=== PATIENT | female | born 1995 | race Caucasian/White ===

== ENCOUNTER → 2018-04-10 | Outpatient (CLI) | payer OTHER ==
--- NOTE | 2018-04-11 11:51 | MM ---
Reason for exam: screening (asymptomatic). Baseline mammogram. History: Family history of breast cancer in mother at age 26. Physical Findings: Nurse did not find any significant physical abnormalities on exam. MG Screening Mammo w CAD Bilateral CC and MLO view(s) were taken. There are scattered fibroglandular densities. Asymmetric density medial left breast likely summation. Further evaluation recommended. Otherwise, no abnormality seen. These results were verbally communicated with the patient and result sheet given to the patient on 04/10/18. ASSESSMENT: Incomplete: need additional imaging evaluation, BI-RAD 0 RECOMMENDATION: Special view mammogram of the left breast. If lesion persists on supplemental views, image directed ultrasound is recommended. [facility] will attempt to contact patient to return for supplemental views and ultrasound if indicated.
--- NOTE | 2018-04-11 11:56 | MM ---
Reason for exam: additional evaluation requested from abnormal screening. History: Family history of breast cancer in mother at age 26. Physical Findings: Breast exam preformed at baseline screening. MG Diagnostic Mammo LT w CAD Spot compression CC, spot compression MLO, and LM view(s) were taken of the left breast. There are scattered fibroglandular densities. The questioned medial asymmetric density does not persist. These results were verbally communicated with the patient and result sheet given to the patient on 04/10/18. ASSESSMENT: Negative, BI-RAD 1 RECOMMENDATION: Return to routine screening mammogram schedule for the left breast. Given patient's family history, she may qualify for alternating mammogram and MRI screening.
== END | disposition home or self-care (01) ==
LOC: RADMAMWWP 13:39
PROVIDERS: ATTEND Family Medicine
DX: Z12.31 Encounter for screening mammogram for malignant neoplasm of breast (principal); R92.8 Other abnormal and inconclusive findings on diagnostic imaging of breast; Z80.3 Family history of malignant neoplasm of breast
CPT/HCPCS: 77065; 77067

== ENCOUNTER → 2019-01-23 | Outpatient (CLI) | payer OTHER ==
--- NOTE | 2019-01-23 17:40 | US ---
EXAMINATION TYPE: US transvaginal DATE OF EXAM: 01/23/2019 COMPARISON: NONE CLINICAL HISTORY: 23-year-old female R19.09 INTRA ABD AND PELVIC SWELLING. Patient states that during pelvic exam, doctor felt mass on right side. Patient currently has a NuvaRing. Family hx of ovaria n cancer TECHNIQUE: Transvaginal (TV). Date of LMP: 01/11/2019, FINDINGS: EXAM MEASUREMENTS: Uterus: 7.6 x 4.7 x 3.8 cm Endometrial Stripe: 0.6 cm Right Ovary: 2.9 x 1.6 x 1.5 cm Left Ovary: 2.6 x 1.3 x 1.1 cm 1. Uterus: Anteverted wnl 2. Endometrium: wnl 3. Right Ovary: follicles seen 4. Left Ovary: follicles seen 5. Bilateral Adnexa: wnl 6. Posterior cul-de-sac: small amount of free fluid 7. Cervix- nonvascular tubular structure seen adjacent to cervix, possible NuvaRing. IMPRESSION: 1. Normal-sized ovaries with normal follicular change. 2. What appears to be the NuvaRing is identified along the posterior fornix. 3. No adnexal mass.
== END | disposition home or self-care (01) ==
LOC: RADUSWWP 16:16
PROVIDERS: ATTEND Family Medicine
DX: R19.09 Other intra-abdominal and pelvic swelling, mass and lump (principal)
CPT/HCPCS: 76830

== ENCOUNTER → 2019-09-04 | Outpatient (CLI) | payer OTHER ==
--- NOTE | 2019-09-04 11:04 | US ---
EXAMINATION TYPE: US venous doppler duplex LE RT DATE OF EXAM: 09/04/2019 10:55 AM COMPARISON: NONE CLINICAL HISTORY: R Leg, M79.604 pain. pain in right leg that has gotten worse, no h/o dvt SIDE PERFORMED: Right TECHNIQUE: The lower extremity deep venous system is examined utilizing real time linear array sonog usha with graded compression, doppler sonography and color-flow sonography. VESSELS IMAGED: External Iliac Vein (EIV) Common Femoral Vein Deep Femoral Vein Greater Saphenous Vein * Femoral Vein Popliteal Vein Small Saphenous Vein * Proximal Calf Veins (* superficial vessels) Right Leg: Appears negative for DVT Grayscale, color doppler, spectral doppler imaging performed of the deep veins of the right lower ext remity. There is normal flow, compressibility, vascular waveforms. IMPRESSION: No ultrasound evidence for acute DVT in the right lower extremity.
== END | disposition home or self-care (01) ==
LOC: RADUSWWP 10:34
PROVIDERS: ATTEND Family Medicine
DX: M79.604 Pain in right leg (principal)

== ENCOUNTER 2021-04-13 18:06 | Inpatient (IN) | payer MEDICAID, OTHER ==
--- NOTE | 2021-04-13 18:45 | ED ---
General Adult HPI - General Chief complaint: Psychiatric Symptoms Stated complaint: mental health Time Seen by Provider: 04/13/21 18:29 Source: patient, RN notes reviewed Mode of arrival: ambulatory Limitations: no limitations - History of Present Illness Initial comments: Patient is a pleasant 25-year-old female presenting to the emergency department with mental health concerns. Patient has been depressed over the past month and a half. Patient does have some thoughts of self-harm without plan. Patient has been hearing voices the past few days. Patient questions if someone is trying to talk to her. Patient also sees some strange things at the corner of her eyes. Patient does feel little bit paranoid. No homicidal thoughts. No alcohol or street drug use. - Related Data Home Medications Medication Instructions Recorded Confirmed Divalproex Sodium [Depakote] 500 mg PO BID 04/13/21 04/13/21 hydrOXYzine pamoate [Vistaril] 25 mg PO TID PRN 04/13/21 04/13/21 Allergies Allergy/AdvReac Type Severity Reaction Status Date / Time cephalexin [From Keflex] Allergy Anaphylaxis Verified 04/13/21 19:44 Penicillins Allergy Anaphylaxis Verified 04/13/21 19:44 clindamycin AdvReac Vomiting Verified 04/13/21 19:44 Sulfa (Sulfonamide AdvReac Vomiting Verified 04/13/21 19:44 Antibiotics) Review of Systems ROS Statement: Those systems with pertinent positive or pertinent negative responses have been documented in the HPI. ROS Other: All systems not noted in ROS Statement are negative. Constitutional: Denies: fever Eyes: Denies: eye pain ENT: Denies: ear pain Respiratory: Denies: cough Cardiovascular: Denies: chest pain Endocrine: Denies: fatigue Gastrointestinal: Denies: abdominal pain Genitourinary: Denies: urgency Musculoskeletal: Denies: back pain Skin: Denies: rash Neurological: Denies: weakness Psychiatric: Reports: depression, auditory hallucinations, visual hallucinations, suicidal thoughts Past Medical History Past Medical History: Seizure Disorder History of Any Multi-Drug Resistant Organisms: None Reported Past Surgical History: Adenoidectomy, Section, Cholecystectomy, Tonsillectomy Past Psychological History: Bipolar, Depression Smoking Status: Current every day smoker Past Alcohol Use History: None Reported Past Drug Use History: Marijuana General Exam Limitations: no limitations General appearance: alert, in no apparent distress Head exam: Present: normocephalic Eye exam: Present: normal appearance Respiratory exam: Present: normal lung sounds bilaterally Cardiovascular Exam: Present: regular rate, normal rhythm GI/Abdominal exam: Present: soft. Absent: tenderness Extremities exam: Present: normal inspection Neurological exam: Present: alert Psychiatric exam: Present: normal affect, normal mood Skin exam: Present: normal color Course Vital Signs 04/13/21 18:08 Temperature 98.6 F Pulse Rate 80 Respiratory 16 Rate Blood Pressure 152/89 O2 Sat by Pulse 98 Oximetry Medical Decision Making - Medical Decision Making Patient seen by mental health services, who will admit. Disposition Clinical Impression: Acute psychosis, Depression Disposition: TRANSFER TO PSYCH HOSP/UNIT Is patient prescribed a controlled substance at d/c from ED?: No Referrals: Lucio Rodriguez MD [Primary Care Provider] - 1-2 days Decision Time: 19:52
[2021-04-13] MEDS ORDERED: MAG HYDROX/AL HYDROX/SIMETH 30 ML CUP PO PRN (20:57)
[2021-04-13] MEDS ORDERED: MAGNESIUM HYDROXIDE 2,400 MG/10 ML CUP PO PRN (20:57)
[2021-04-13] MEDS ORDERED: ACETAMINOPHEN TAB 325 MG TAB PO PRN (20:57)
[2021-04-13] MEDS ORDERED: LORazepam 1 MG TAB PO PRN (20:57)
[2021-04-13] MEDS ORDERED: LORazepam 2 MG/ML INJ IM PRN (21:07)
[2021-04-13] MEDS ORDERED: HALOPERIDOL LACTATE 5 MG/ML 1 ML VIAL IM PRN (21:07)
[2021-04-14 07:34] LABS: Basophils # (A) 0.1 k/uL (0-0.2); Basophils % (A) 1 %; Eosinophils # (A) 0.4 k/uL (0-0.7); Eosinophils % (A) 4 %; HCT 41.9 % (34.0-46.0); HGB 13.3 gm/dL (11.4-16.0); Lymphocytes # (A) 3.4 k/uL (1.0-4.8); Lymphocytes % (A) 30 %; MCH 26.7 pg (25.0-35.0); MCHC 31.8 g/dL (31.0-37.0); MCV 84.1 fL (80.0-100.0); Monocytes # (A) 0.4 k/uL (0-1.0); Monocytes % (A) 4 %; Neutrophils # (A) 6.7 k/uL (1.3-7.7); Neutrophils % (A) 61 %; Platelet Count 248 k/uL (150-450); RBC 4.98 m/uL (3.80-5.40); RDW 14.2 % (11.5-15.5); WBC 11.1 k/uL (3.8-10.6)
[2021-04-14 07:41] LABS: ALT 10 U/L (4-34); AST 17 U/L (14-36); African American GFR (CKD) >90 (>60 ml/min/1.73 sqM); Albumin 3.6 g/dL (3.5-5.0); Alkaline Phosphatase 86 U/L (38-126); Anion Gap 4 mmol/L; Blood Urea Nitrogen 9 mg/dL (7-17); Calcium 9.3 mg/dL (8.4-10.2); Carbon Dioxide 27 mmol/L (22-30); Chloride 108 mmol/L (98-107); Glucose 107 mg/dL (74-99); Non-African American GFR(CKD) >90 (>60 ml/min/1.73 sqM); Potassium 4.7 mmol/L (3.5-5.1); Sodium 139 mmol/L (137-145); Total Bilirubin 0.3 mg/dL (0.2-1.3)
[2021-04-14] MEDS: NICOTINE 14MG/24HR PATCH TRANSDERM SCH (09:15)
--- NOTE | 2021-04-14 11:27 | P.HP ---
Psychiatric H&P - . H&P Date: 04/14/21 History & Physical: Allergies Allergy/AdvReac Type Severity Reaction Status Date / Time cephalexin From Keflex Allergy Anaphylaxis Verified 04/13/21 19:44 Penicillins Allergy Anaphylaxis Verified 04/13/21 19:44 clindamycin AdvReac Vomiting Verified 04/13/21 19:44 Sulfa (Sulfonamide AdvReac Vomiting Verified 04/13/21 19:44 Antibiotics) Vital Signs Temp 98.6 F 04/13/21 23:05 Pulse 90 04/13/21 23:05 Resp 18 04/13/21 23:05 BP 126/74 04/13/21 23:05 Pulse Ox 99 04/13/21 23:05 Intake & Output 04/13/21 04/14/21 04/14/21 18:59 06:59 18:59 Weight 99.79 kg 100.754 kg Laboratory Last Values WBC 11.1 k/uL (3.8-10.6) H 04/14/21 07:05 RBC 4.98 m/uL (3.80-5.40) 04/14/21 07:05 Hgb 13.3 gm/dL (11.4-16.0) 04/14/21 07:05 Hct 41.9 % (34.0-46.0) 04/14/21 07:05 MCV 84.1 fL (80.0-100.0) 04/14/21 07:05 MCH 26.7 pg (25.0-35.0) 04/14/21 07:05 MCHC 31.8 g/dL (31.0-37.0) 04/14/21 07:05 RDW 14.2 % (11.5-15.5) 04/14/21 07:05 Plt Count 248 k/uL (150-450) 04/14/21 07:05 MPV 9.0 04/14/21 07:05 Neutrophils % 61 % 04/14/21 07:05 Lymphocytes % 30 % 04/14/21 07:05 Monocytes % 4 % 04/14/21 07:05 Eosinophils % 4 % 04/14/21 07:05 Basophils % 1 % 04/14/21 07:05 Neutrophils # 6.7 k/uL (1.3-7.7) 04/14/21 07:05 Lymphocytes # 3.4 k/uL (1.0-4.8) 04/14/21 07:05 Monocytes # 0.4 k/uL (0-1.0) 04/14/21 07:05 Eosinophils # 0.4 k/uL (0-0.7) 04/14/21 07:05 Basophils # 0.1 k/uL (0-0.2) 04/14/21 07:05 Sodium 139 mmol/L (137-145) 04/14/21 07:05 Potassium 4.7 mmol/L (3.5-5.1) 04/14/21 07:05 Chloride 108 mmol/L (98-107) H 04/14/21 07:05 Carbon Dioxide 27 mmol/L (22-30) 04/14/21 07:05 Anion Gap 4 mmol/L 04/14/21 07:05 BUN 9 mg/dL (7-17) 04/14/21 07:05 Creatinine 0.65 mg/dL (0.52-1.04) 04/14/21 07:05 Est GFR (CKD-EPI)AfAm >90 (>60 ml/min/1.73 sqM) 04/14/21 07:05 Est GFR (CKD-EPI)NonAf >90 (>60 ml/min/1.73 sqM) 04/14/21 07:05 Glucose 107 mg/dL (74-99) H 04/14/21 07:05 Calcium 9.3 mg/dL (8.4-10.2) 04/14/21 07:05 Total Bilirubin 0.3 mg/dL (0.2-1.3) 04/14/21 07:05 AST 17 U/L (14-36) 04/14/21 07:05 ALT 10 U/L (4-34) 04/14/21 07:05 Alkaline Phosphatase 86 U/L (38-126) 04/14/21 07:05 Total Protein 6.0 g/dL (6.3-8.2) L 04/14/21 07:05 Albumin 3.6 g/dL (3.5-5.0) 04/14/21 07:05 TSH 2.140 mIU/L (0.465-4.680) 04/14/21 07:05 Valproic Acid 35.1 ug/mL 04/14/21 07:05 04/14/21 11:18 IDENTIFYING DATA: Patient is a 25-year-old female with a history of bipolar disorder who currently lives with her has 3 kids and lives in a trailer. She is unemployed. HPI: Patient presented to the hospital yesterday for a psychiatric evaluation. She is reporting an increase in her depression for the past 1-1/2 months according to ER report. Patient also reported in the ER that she was having increasing thoughts of suicide however had no plan or intent. She also was reporting auditory hallucinations and paranoia at that time. She was admitted to the mental health unit for psychiatric evaluation. She was seen this morning agreeable to see the policy writer sales. She claims that she has been having financial st ressors and almost lost her trailer recently. She claims that her grandma and cousin recently . She states that for the past 3-4 days she's been expressing auditory hallucinations which are completely brand-new to her. She states that she was also started on Depakote about one week ago by her nurse practitioner at [facility]. She states that the voices were trying to get her attention and calling her name throughout the day. She states that her mood has been fairly depressed however does report mood swings and elevations in her mood including hypomanic and manic episodes. She states that she has been diagnosed with bipolar disorder since the age of 13. She claims that she has been going to see a counselor at [facility] which has been helping. She states that she also does have anxiety. She claims that since she stopped taking the Depakote yesterday she has not heard the voices. She states that her sleep is chronically poor. She claims that her appetite is fair. She is not endorsing any paranoia today or delusions. Patient denies any current suicidal or homicidal ideations intent or plan. At this time patient denies any auditory or visual hallucinations. Patient denies any flight of ideas racing thoughts and increased in goal directed behavior. Patient admits to using marijuana daily and cigarettes daily. PAST PSYCHIATRIC HISTORY: Patient states that she has a history of bipolar disorder and anxiety. Patient is on Depakote and Vistaril. She states that she was once psychiatrically hospitalized at the age of 13. She claims that she follows up with a nurse practitioner at [facility]. She claims that she has had 3 suicide attempts in the past including jumping off a balcony and overdosing when she was 10-12 years old. PMH: She claims that she has costochondritis and chronic pain ALLERGIES: as per EMR CHEMICAL DEPENDENCY HISTORY: as per HPI FAMILY PSYCHIATRIC/SUBSTANCE USE HISTORY: She states that her father or mother and grandmother all have depression. She states that her cousin recently committed suicide. SOCIAL HISTORY: Patient was born and raised in [place] and also [place]. She states that she completed high school. 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 She states that she is and lives with her in a trailer has 3 kids. She denies any legal history.. MENTAL STATUS EXAM: General Appearance: Patient appears to be overweight, short hair, stated age is alert, directable, and attempts to cooperate. Patient appears to have fair hygiene and grooming. Facial piercings. Behavior: Patient is seated without any agitated behavior. Speech: Patient's speech is fluent and nonpressured. Mood/Affect: Patient reports their mood is depressed and anxious, affect is congruent and constricted. Suicidality/Homicidality: Patient denies having any homicidal ideation intent or plan. Denies any suicidal ideations intent or plan Perceptions: Patient denies any visual hallucinations and denies any auditory hallucinations Though content/process: There is no evidence of any delusional thought content and thought process is linear and goal-directed. Memory and concentration: AOX3, grossly intact for the purposes of this session. Can spell "WORLD" backwards Judgment and insight: Fair STRENGTHS/WEAKNESSES: strength is that patient is resilient. Weakness is that patient chronic mental illness and is impulsive. INTELLECT: average IMPRESSIONS: Psychotropic agent causing adverse effect in therapeutic use Bipolar disorder unspecified Anxiety disorder unspecified Cannabis use disorder Nicotine dependence PLAN: -Patient is admitted under voluntary status to MHU for stabilization of psychiatric symptoms and safety. Patient has signed adult voluntary form and medication consent and is placed in patient's chart. -Medications : Will start patient on Lamictal 25 mg twice a day for mood stabilization/depression. Vistaril when necessary every 6 hours for anxiety + 25mg qhs scheduled for insomnia/anxiety. Discontinue Depakote as this was most likely the culprit for patient's auditory hallucinations and suicidal ideations. -Ativan and Haldol PRN for agitation/aggression -Patient was counselled on substance abuse and desired to cut back on use -Patient was informed of the risks, benefits and side effects of the medication and patient verbally consented to taking the medications. Patient signed med consent form and was placed in chart. -Internal Medicine consult to perform medical evaluation and physical. -NRT - nicotine patch -SW on board for discharge planning. Encourage patient to participate in groups to work on coping skills. 04/14/21 11:26
[2021-04-14] MEDS ORDERED: hydrOXYzine pamoate 25 MG CAP PO PRN (11:28)
[2021-04-14] MEDS: lamoTRIgine 25 MG TAB PO SCH ×2 (12:23→20:52)
[2021-04-14 15:40] LABS: Hemoglobin A1C 5.5 % (4.0-6.0)
[2021-04-14 16:31] LABS: Chol/HDL Ratio 4.74; Cholesterol 161 mg/dL (0-200); LDL Cholesterol,Calculated 94.6 mg/dL (0.0-131.0)
[2021-04-14] MEDS: hydrOXYzine pamoate 25 MG CAP PO SCH (20:52)
--- NOTE | 2021-04-14 22:37 | P.CONS ---
History of Present Illness - History of Present Illness This is a pleasant 25 years old female with past medical history of asthma, s eizure disorder, status post tubal ligation, right volar and depression. She was admitted to the mental health unit with signs and symptoms of depression and anxiety. Consult was requested for routine medical management. Patient was seen in walking in the hallway with no difficulty. She denies Any specific symptoms. Chest pain or dyspnea. No change in urine or bowel habits. No fever vitals are stable She has mild leukocytosis at 11 K, mostly secondary to stress. No fever or signs of infection no need for antibiotic Rest of CBC, BMP and liver enzymes are unremarkable. TSH is normal at 2.1. Triglycerides is slightly elevated at 162, LDL is 94. HDL is appropriately low at 34. She smokes half pack per day and she uses marijuana and times Review of Systems CONSTITUTIONAL: No fever, no malaise, no fatigue. HEENT: No recent visual problems or hearing problems. Denied any sore throat. CARDIOVASCULAR: No orthopnea, PND, no palpitations, no syncope. PULMONARY: No shortness of breath, no cough, no hemoptysis. GASTROINTESTINAL: No diarrhea, no nausea, no vomiting, no abdominal pain. Normoactive bowel sounds. NEUROLOGICAL: No headaches, no weakness, no numbness. HEMATOLOGICAL: Denies any bleeding or petechiae. GENITOURINARY: Denies any burning micturition, frequency, or urgency. MUSCULOSKELETAL/RHEUMATOLOGICAL: Denies any joint pain, swelling, or any muscle pain. ENDOCRINE: Denies any polyuria or polydipsia. Past Medical History Past Medical History: Asthma, Seizure Disorder Additional Past Medical History / Comment(s): pt reports that she has psuedoseizures. pt also states that she has a history of asthma and costal chondritis. History of Any Multi-Drug Resistant Organisms: None Reported Past Surgical History: Adenoidectomy, Section, Cholecystectomy, Tonsillectomy Past Anesthesia/Blood Transfusion Reactions: No Reported Reaction Past Psychological History: Bipolar, Depression Smoking Status: Current every day smoker Past Alcohol Use History: None Reported Past Drug Use History: Marijuana Medications and Allergies Home Medications Medication Instructions Recorded Confirmed Type Divalproex Sodium [Depakote] 500 mg PO BID 04/13/21 04/13/21 History hydrOXYzine pamoate [Vistaril] 25 mg PO TID PRN 04/13/21 04/13/21 History Allergies Allergy/AdvReac Type Severity Reaction Status Date / Time cephalexin [From Keflex] Allergy Anaphylaxis Verified 04/13/21 19:44 Penicillins Allergy Anaphylaxis Verified 04/13/21 19:44 clindamycin AdvReac Vomiting Verified 04/13/21 19:44 Sulfa (Sulfonamide AdvReac Vomiting Verified 04/13/21 19:44 Antibiotics) Physical Exam Vitals: Vital Signs Temp Pulse Resp BP Pulse Ox 04/13/21 23:05 98.6 F 90 18 126/74 99 Intake and Output 04/14/21 04/14/21 04/14/21 06:59 14:59 22:59 Other: Weight 100.754 kg -GENERAL: The patient is alert and oriented x3, not in any acute distress. Obese HEENT: Pupils are round and equally reacting to light. EOMI. No scleral icterus. No conjunctival pallor. Normocephalic, atraumatic. No pharyngeal erythema. No thyromegaly. CARDIOVASCULAR: S1 and S2 present. No murmurs, rubs, or gallops. PULMONARY: Chest is clear to auscultation, no wheezing or crackles. ABDOMEN: Soft, nontender, nondistended, normoactive bowel sounds. No palpable organomegaly. MUSCULOSKELETAL: No joint swelling or deformity. EXTREMITIES: No cyanosis, clubbing, or pedal edema. NEUROLOGICAL: Gross neurological examination did not reveal any focal deficits. SKIN: No rashes. No petechiae Results CBC & Chem 7: 04/14/21 07:05 04/14/21 07:05 Labs: Abnormal Lab Results - Last 24 Hours (Table) 04/14/21 04/14/21 Range/Units 07:05 07:05 WBC 11.1 H (3.8-10.6) k/uL Chloride 108 H (98-107) mmol/L Glucose 107 H (74-99) mg/dL Total Protein 6.0 L (6.3-8.2) g/dL Triglycerides 162.0 H (0.0-149.0) mg/dL HDL Cholesterol 34.0 L (40.0-60.0) mg/dL Assessment and Plan Assessment: -Depression and other sac illnesses, management as per primary team -Obesity: Recommend exercise and diet -Nicotine dependence: Patient was counseled to quit, she agrees to quit but declinesNicotine patch -Substance abuse with marijuana, patient was counseled to quit -History of asthma, not an active issue -History of seizure, not an active issue Patient recommended to follow-up with PCP in one week after discharge and she was instructed with the same Thank you for consulting us, T the patient on as needed basis. Please feel free to contact us for any future questions
[2021-04-15 06:38] VITALS: PULSE 81; RESP 16
[2021-04-15] MEDS: NICOTINE 14MG/24HR PATCH TRANSDERM SCH (08:29)
[2021-04-15] MEDS: lamoTRIgine 25 MG TAB PO SCH ×2 (08:30→20:42)
--- NOTE | 2021-04-15 10:02 | P.PN ---
Progress Note - Text Progress Note Date: 04/15/21 Interval History: Patient was seen today laying in her bed and was directable and agreeable to s peak with proposal lead writer in the office. Patient appears to be somewhat tired this morning however states that she feels "good". She states that her anxiety has improved since being on the unit and did not have anxiety or a panic attack this morning when she woke up. She states that she was able to sleep fairly throughout the night with her Vistaril. She claims that she is checking her skin and not feeling any changes or seeing any rashes from the Lamictal. She claims that she spoke with her and her mother over the phone. She states that she has been trying to go to groups and participate as best as she can. She states that she has been overall improving on the medications and not hearing any more voices or feeling suicidal. She states that she was able to sleep fairly throughout the night. At this time patient denies any suicidal or homical ideations, intent or plan. Patient denies any auditory, visual hallucinations and denies any paranoia or delusions. Patient denies any side effects from the medications and has been compliant with meds. Mental Status Exam: General Appearance: Patient appears to be overweight, short hair, stated age is alert, directable, and attempts to cooperate. Patient appears to have fair hygiene and grooming. Facial piercings. Behavior: Patient is seated without any agitated behavior. Speech: Patient's speech is fluent and nonpressured. Mood/Affect: Patient reports their mood is improving, affect is congruent and constricted. Suicidality/Homicidality: Patient denies having any homicidal ideation intent or plan. Denies any suicidal ideations intent or plan Perceptions: Patient denies any visual hallucinations and denies any auditory hallucinations Though content/process: There is no evidence of any delusional thought content and thought process is linear and goal-directed. Memory and concentration: AOX3, grossly intact for the purposes of this session. Judgment and insight: Fair Assessment Psychotropic agent causing adverse effect in therapeutic use Bipolar disorder unspecified Anxiety disorder unspecified Cannabis use disorder Nicotine dependence Plan: -Patient continues to meet criteria for inpatient psychiatric admission for symptom stabilization and safety. Patient has signed adult voluntary form and medication consent and was placed in patient's chart. -Medications: Continue with Lamictal 25 mg twice a day for mood stabilization/depression. Continue Vistaril when necessary for anxiety +25 mg daily at bedtime scheduled for insomnia/anxiety. -When necessary Ativan and Haldol for agitation/aggression. -NRT - nicotine patch -SW on board for discharge planning. Encouraged the patient to participate in milieu. if patient does well overnight and improves by tomorrow then she will be set for discharge back home tomorrow.
[2021-04-15] MEDS: hydrOXYzine pamoate 25 MG CAP PO SCH (20:42)
[2021-04-16 06:59] VITALS: BP 136/71; TEMP 97.2
[2021-04-16] MEDS: NICOTINE 14MG/24HR PATCH TRANSDERM SCH (07:30)
[2021-04-16] MEDS: lamoTRIgine 25 MG TAB PO SCH (07:31)
--- NOTE | 2021-04-16 11:21 | P.DS ---
Providers Date of admission: 04/13/21 20:25 Expected date of discharge: 04/16/21 Attending physician: Efrain Gavin MD Consults: 04/13/21 20:57 Consult Physician Routine Consulting Provider: Geovanny Hennessy Consult Reason/Comments: H&P and medical Do you want consulting provider notified?: Yes Primary care physician: [facility] Course: Patient had her physical examination done by Dr. Link on 04/13/2021 and psychiatric H&P by Dr. Gavin done on 04/14/2021. She also had her psychosocial evaluation. After psychiatric H&P Dr. Gavin discontinued her Depakote and start ed her on Lamictal 25 mg twice a day for more stabilization and Vistaril 25 mg at bedtime for insomnia and anxiety. She responded very well with these medication changes. She reported her hallucinations disappeared mood became more stable, has been able to sleep well at night and denies suicide and homicide thoughts. She agreed to continue with her outpatient treatment at [facility] and will see her family doctor for physical problems. Mental status at the time of discharge: This is a white ambulatory female with a BMI of 39.3 kg/m. She is polite friendly and cooperative. She does not show any psychomotor agitation or retardation. Her speech is spontaneous relevant and goal-directed. Her mood is euthymic and affect is appropriate. She denies hallucinations delusional thinking suicide and homicide thoughts. She is well oriented with good memory concentration general fund of knowledge. Her insight has improved and judgment is also better as evidenced by her willingness to comply with treatment and continue with outpatient counseling and follow-up. She was advised to take her medications as prescribed, not to drink alcohol or use drugs, not to drive or operate machinery if she feels sleepy or drowsy, to inform her doctor if she gets , to call her doctor or residential case manager and if she cannot get hold of them go to nearest ER if she notices any change in her mental status or gets any thoughts of suicide or homicide. Assessment: Her condition is stable and does not have any evidence of psychosis suicide or homicide thoughts. Health Concerns: Stable Pertinent Studies: Not applicable Procedures: None Patient Condition at Discharge: Good Plan - Discharge Summary Discharge Rx Participant: Yes New Discharge Prescriptions: New lamoTRIgine [LaMICtal] 25 mg PO BID 30 Days #60 tab hydrOXYzine pamoate [Vistaril] 25 mg PO HS 30 Days #30 cap No Action Divalproex Sodium [Depakote] 500 mg PO BID hydrOXYzine pamoate [Vistaril] 25 mg PO TID PRN PRN Reason: Anxiety Discharge Medication List Divalproex Sodium [Depakote] 500 mg PO BID 04/13/21 [History] hydrOXYzine pamoate [Vistaril] 25 mg PO TID PRN 04/13/21 [History] hydrOXYzine pamoate [Vistaril] 25 mg PO HS 30 Days #30 cap 04/16/21 [Rx] lamoTRIgine [LaMICtal] 25 mg PO BID 30 Days #60 tab 04/16/21 [Rx] Follow up Appointment(s)/Referral(s): [facility] [Outside] - 04/20/21 11:00 am (04-20-21 @ 11:00 with Nova Alonzo at [facility] office 04-22-21 @ 11:30 with DANIAL Estrada at [facility] office 04-22-21 @ 1:00 with Maria C Kitchen by phone) Lucio Rodriguez MD [Primary Care Provider] - 1-2 days Activity/Diet/Wound Care/Special Instructions: Activity and diet as tolerated. Avoid the use of street drugs and alcohol. Take all medications as prescribed. When you are in need of refills on your medications please contact your medical provider and/or outpatient psychiatrist to have this done. Please go to scheduled outpatient appointment for aftercare treatment. If symptoms return or become worse, call the crisis line at and/or go to the nearest emergency room for evaluation. Pending Studies Pending Results: None
== END 2021-04-16 12:14 | disposition home or self-care (01) | DRG 101 ==
LOC: EC 18:06 → 3MHU 20:25
PROVIDERS: ADMIT Psychiatry & Neurology Psychiatry; ATTEND Psychiatry & Neurology Psychiatry
DX: G40.909 Epilepsy, unspecified, not intractable, without status epilepticus (principal); R45.851 Suicidal ideations; F31.9 Bipolar disorder, unspecified; F41.9 Anxiety disorder, unspecified; F12.10 Cannabis abuse, uncomplicated; J45.909 Unspecified asthma, uncomplicated; M94.0 Chondrocostal junction syndrome [Tietze]; G89.29 Other chronic pain; D72.829 Elevated white blood cell count, unspecified; E66.9 Obesity, unspecified; Z68.39 Body mass index [BMI] 39.0-39.9, adult; F17.210 Nicotine dependence, cigarettes, uncomplicated; Z71.6 Tobacco abuse counseling; Z90.89 Acquired absence of other organs; Z98.891 History of uterine scar from previous surgery; Z90.49 Acquired absence of other specified parts of digestive tract; Z87.19 Personal history of other diseases of the digestive system; Z98.51 Tubal ligation status; Z98.890 Other specified postprocedural states; Z79.899 Other long term (current) drug therapy; Z88.1 Allergy status to other antibiotic agents; Z88.0 Allergy status to penicillin; Z88.2 Allergy status to sulfonamides; Z81.8 Family history of other mental and behavioral disorders
CPT/HCPCS: 80053; 80061; 80164; 82075; 83036; 84443; 85025; 99285

== ENCOUNTER → 2021-07-08 | Outpatient (CLI) | payer OTHER ==
--- NOTE | 2021-07-08 19:23 | MR ---
EXAMINATION TYPE: MR brain wo con DATE OF EXAM: 07/08/2021 COMPARISON: Patient's outside CT of the head is not available for review. HISTORY: 25-year-old female R56.9, Seizures. TECHNIQUE: Multiplanar, multisequence images of the brain and brainstem were acquired without IV con trast. Diffusion weighted imaging is performed. FINDINGS: No evidence for acute infarction, hemorrhage, mass, mass effect, midline shift, herniation, effacemen t of basal cisterns, or extra-axial fluid collection. The ventricles and sulci are age-appropriate. Major intracranial flow voids are intact. T2/FLAIR weighted sequences show no white matter signal abnormality. No hippocampal or forniceal atrophy. No evidence for portillo matter heterotopia. Midline structures demonstrate normal morphology. There is 1.4 cm of cerebellar tonsillar ectopia wit h a tonsillar beaking. Post contrast images demonstrate no evidence of pathologic enhancement. Dural venous sinuses are patent. Moderate to severe mucosal thickening right maxillary sinus, right ethmoid air cells, and right front al sinus. Moderate mucosal thickening left ethmoid air cells. There is also mucosal thickening within the far lateral recess of the left sphenoid sinus. IMPRESSION: 1. 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 2. No other specific brain abnormality is identified. 3. Moderate to severe right-sided paranasal sinus disease. Correlate for possible obstruction of the right ostiomeatal complex.
== END | disposition home or self-care (01) ==
LOC: RADMRIMAIN 15:08
PROVIDERS: ATTEND Family Medicine
DX: R56.9 Unspecified convulsions (principal); Q04.8 Other specified congenital malformations of brain
CPT/HCPCS: 70551

== ENCOUNTER → 2022-04-02 | Outpatient (CLI) | payer OTHER ==
--- NOTE | 2022-04-02 14:14 | US ---
EXAMINATION TYPE: US kidneys/renal and bladder DATE OF EXAM: 04/02/2022 COMPARISON: NONE CLINICAL HISTORY: R10.9 ABD PAIN. right flank pain, microscopic hematuria EXAM MEASUREMENTS: Right Kidney: 13.1 x 4.0 x 4.3 cm Left Kidney: 13.9 x 4.7 x 4.5 cm limitations due to overlying bowel content Right Kidney: no evidence of hydronephrosis Left Kidney: dromedary hump Bladder: wnl Bilateral Jets seen: yes *incidental finding: splenomegaly = 14.1cm The urinary bladder is adequately distended. Bilateral ureteral jets are seen. Kidneys are symmetric and slightly prominent in size. Cortical medullary differentiation is maintained. No hydronephrosis is evident. No concerning solid or cystic masses seen on images saved. Mild splenomegaly of 14.1 cm l marjorie axis. No adjacent ascites. No focal intrasplenic mass. IMPRESSION: Source of flank pain and hematuria not identified. Consider renal protocol CT to further evaluate. Note is made of mild splenomegaly which may warrant further clinical workup.
== END | disposition home or self-care (01) ==
LOC: RADUSWWP 13:34
PROVIDERS: ATTEND Family Medicine
DX: R10.9 Unspecified abdominal pain (principal)
CPT/HCPCS: 76770

== ENCOUNTER → 2022-06-01 | Outpatient (CLI) | payer OTHER ==
--- NOTE | 2022-06-01 11:51 | MR ---
EXAMINATION TYPE: MR lumbar spine wo con DATE OF EXAM: 06/01/2022 COMPARISON: NONE HISTORY: CONGENITAL MALFORMATION OF NERVOUS SYSTEM, Chiari Malformation TECHNIQUE: T1 and T2 axial and sagittal images of the lumbar spine are submitted. FINDINGS: There is no abnormal signal seen within the visualized spinal cord or paraspinal soft tissu es. At L1-2 there is no degenerative disc disease, disc herniation, or canal stenosis. No foraminal encro achment. At L2-3 there is no degenerative disc disease, disc herniation, or canal stenosis. No foraminal encro achment At L3-4 there is no degenerative disc disease, disc herniation, or canal stenosis. No foraminal encro achment At L4-5 there is no degenerative disc disease, disc herniation, or canal stenosis. No foraminal encro achment At L5-S1 there is no degenerative disc disease, disc herniation, or canal stenosis. No foraminal encr oachment. Hypertrophic changes of the facets. IMPRESSION: 1. No evidence of degenerative disc disease of, disc herniation or canal stenosis. 2. Hypertrophic changes of the facet joints L5-S1. EXAMINATION TYPE: MR thoracic wo con DATE OF EXAM: 06/01/2022 COMPARISON: NONE HISTORY: CONGENITAL MALFORMATION OF NERVOUS SYSTEM, Chiari Malformation TECHNIQUE: Multiplanar multisequence images of the thoracic spine are submitted. FINDINGS: There is no abnormal signal seen within the visualized spinal cord or paraspinal soft tissu es. Alignment is anatomic. Vertebral body height and disc interspace and the signal maintained at all lev els with no evidence of degenerative disc disease. No compression deformities. No disc herniation, ca nal stenosis, or foraminal encroachment at any of the visualized levels there is a 1 mm area of incre ased signal within the spinal cord centrally which could represent a prominent central canal versus t iny syrinx. IMPRESSION: 1. There is 1 mm area of increased signal involving the thoracic spinal cord centrally which differen tial diagnosis includes a prominent central canal. Tiny syrinx cannot be entirely excluded and short term basis EXAMINATION TYPE: MR cervical spine wo con DATE OF EXAM: 06/01/2022 COMPARISON: NONE HISTORY: CONGENITAL MALFORMATION OF NERVOUS SYSTEM, Chiari Malformation TECHNIQUE: T1 sagittal and coronal, T2 sagittal, and gradient echo axial views of the cervical spine are submitted. FINDINGS: There is cerebellar tonsillar ectopy and measuring 1.2 cm below the foramen magnum with ton sillar beaking compatible Chiari malformation.. There is 1 mm area of abnormal signal within the spi nal cord centrally. At C2-3 there is no degenerative disc disease, disc herniation, or canal stenosis. No foraminal encro achment At C3-4 there is no degenerative disc disease, disc herniation, or canal stenosis. No foraminal encro achment At C4-5 there is no degenerative disc disease, disc herniation, or canal stenosis. No foraminal encro achment At C5-6 there is no degenerative disc disease, disc herniation, or canal stenosis. No foraminal encro achment At C6-7 there is no degenerative disc disease, disc herniation, or canal stenosis. No foraminal encro achment At C7-T1 there is no degenerative disc disease, disc herniation, or canal stenosis. No foraminal encr oachment IMPRESSION: 1. Cerebellar tonsillar ectopia compatible with Chiari I malformation with tonsillar beaking. 2. There is a 1 mm area of abnormal signal within the spinal cord. Differential diagnosis would inclu de a prominent central canal. Findings too small to characterize and therefore tiny syrinx could not be excluded and could be followed as clinically warranted.
== END | disposition home or self-care (01) ==
LOC: RADMRIMAIN 07:57
PROVIDERS: ATTEND Neurological Surgery
DX: Q07.9 Congenital malformation of nervous system, unspecified (principal)
CPT/HCPCS: 72141; 72146; 72148

== ENCOUNTER → 2023-08-08 | Outpatient (CLI) | payer OTHER ==
[2023-08-08 14:17] LABS: INR 0.9 (<1.2); Partial Thromboplastin Time 22.7 sec (22.0-30.0); Prothrombin Time 10.3 sec (10.0-12.5)
[2023-08-09 02:12] LABS: Appearance,Urine Turbid (Clear); Bilirubin,Urine Negative (Negative); Blood,Urine Negative (Negative); Color,Urine Yellow (Yellow); Ketones,Urine Trace (Negative); Nitrite,Urine Negative (Negative); Specific Gravity,Urine 1.023 (1.001-1.030)
[2023-08-09 02:35] LABS: Bacteria,Urine 2+ (None Seen)
[2023-08-09 02:44] LABS: ALT 7 U/L (8-44); AST 8 U/L (13-35); Albumin 3.8 g/dL (3.8-4.9); Albumin/Globulin Ratio 2.38 Ratio (1.60-3.17); Alkaline Phosphatase 54 U/L (41-126); BUN/Creat Ratio 9.56 Ratio (12.00-20.00); Blood Urea Nitrogen 8.6 mg/dL (9.0-27.0); Calcium 9.1 mg/dL (8.7-10.3); Carbon Dioxide 22.5 mmol/L (21.6-31.8); Chloride 111 mmol/L (96-109); Globulin 1.6 g/dL (1.6-3.3); Glucose 121 mg/dL (70-110); Potassium 4.2 mmol/L (3.5-5.5); Sodium 143 mmol/L (135-145); Total Bilirubin <0.2 mg/dL (0.3-1.2); Total Protein 5.4 g/dL (6.2-8.2)
[2023-08-09 02:50] LABS: Basophils # (A) 0.05 X 10*3/uL (0.00-0.10); Basophils % (A) 0.5 %; Eosinophils % (A) 1.8 %; HCT 40.9 % (37.2-46.3); HGB 13.3 g/dL (12.0-15.0); Lymphocytes # (A) 3.54 X 10*3/uL (0.90-5.00); Lymphocytes % (A) 32.6 %; MCH 27.7 pg (27.0-32.0); MCHC 32.5 g/dL (32.0-37.0); Monocytes # (A) 0.61 X 10*3/uL (0.20-1.00); Monocytes % (A) 5.6 %; NRBC Per 100 WBC 0 X 10*3/uL (0.00-0.01); Neutrophils # (A) 6.44 X 10*3/uL (1.80-7.70); Neutrophils % (A) 59.2 %; Platelet Count 254 X 10*3/uL (140-440); RBC 4.81 X 10*6/uL (4.10-5.20); RDW 14.1 % (11.5-14.5); WBC 10.87 X 10*3/uL (4.50-10.00)
== END | disposition home or self-care (01) ==
LOC: LABWHC1 13:03
PROVIDERS: ATTEND Neurological Surgery
DX: G93.5 Compression of brain (principal); Q79.60 Ehlers-Danlos syndrome, unspecified
CPT/HCPCS: 36415; 80053; 81001; 83036; 85025; 85610; 85730; 87070; 93005

== ENCOUNTER → 2024-10-18 | Outpatient (CLI) | payer OTHER | END | disposition home or self-care (01) | LOC: LABWHC1 10:16 | PROVIDERS: ATTEND Psychologist Clinical | DX: Z53.9 Procedure and treatment not carried out, unspecified reason (principal) ==